=== PATIENT | female | born 1940 | race Caucasian/White ===

== ENCOUNTER 2016-09-22 09:08 | Outpatient (RCR) | payer MEDICARE, BC | END 2016-10-20 13:18 | LOC: OPPGERO 09:08 | DX: F32.9 Major depressive disorder, single episode, unspecified (principal) ==

== ENCOUNTER 2016-10-21 09:00 | Outpatient (RCR) | payer MEDICARE, BC | END 2016-11-17 10:23 | LOC: OPPGERO 09:00 | DX: F32.9 Major depressive disorder, single episode, unspecified (principal) ==

== ENCOUNTER 2016-11-18 07:33 | Outpatient (RCR) | payer MEDICARE, BC | END 2016-12-18 15:04 | LOC: OPPGERO 07:33 | DX: F32.9 Major depressive disorder, single episode, unspecified (principal) ==

== ENCOUNTER 2016-12-19 09:00 | Outpatient (RCR) | payer MEDICARE, BC | END 2017-01-15 15:29 | disposition still patient (30) | LOC: OPPGERO 09:00 | DX: F32.9 Major depressive disorder, single episode, unspecified (principal) ==

== ENCOUNTER 2017-01-18 08:19 | Outpatient (RCR) | payer MEDICARE, BC | END 2017-02-17 16:50 | LOC: OPPGERO 08:19 | DX: F32.9 Major depressive disorder, single episode, unspecified (principal) ==

== ENCOUNTER 2017-02-18 11:18 | Outpatient (RCR) | payer MEDICARE, BC | END 2017-03-19 15:52 | disposition still patient (30) | LOC: OPPGERO 11:18 | DX: F32.9 Major depressive disorder, single episode, unspecified (principal) ==

== ENCOUNTER 2017-03-22 09:02 | Outpatient (RCR) | payer MEDICARE, BC | END 2017-04-19 15:14 | disposition still patient (30) | LOC: OPPGERO 09:02 | DX: F32.9 Major depressive disorder, single episode, unspecified (principal) ==

== ENCOUNTER 2017-04-20 08:56 | Outpatient (RCR) | payer MEDICARE, BC | END 2017-05-20 14:33 | LOC: OPPGERO 08:56 | DX: F32.9 Major depressive disorder, single episode, unspecified (principal) ==

== ENCOUNTER 2017-05-21 08:15 | Outpatient (RCR) | payer MEDICARE, BC | END 2017-06-18 15:19 | LOC: OPPGERO 08:15 | DX: F32.9 Major depressive disorder, single episode, unspecified (principal) ==